=== PATIENT | male | born 1950 | race Caucasian/White ===

== ENCOUNTER 2019-02-02 09:07 | Day surgery (SDC) | payer OTHER ==
[~2019-02-02] VITALS: Ht 175.3 cm; Wt 62.4 kg
[~2019-02-02 09:07] MED LIST: OMEPRAZOLE
[2019-02-02 10:11] VITALS: Ht 175.3 cm; Wt 62.4 kg
[2019-02-02] MEDS ORDERED: LIDOCAINE 4% SOLUTION 50 ML BTL ONE (10:33)
[2019-02-02 10:34] VITALS: BP 116/58; PULSE 45; RESP 18
[2019-02-02] MEDS ORDERED: MIDAZOLAM 1 MG/ML 2 ML INJ ONE ×2 (11:13)
[2019-02-02] MEDS ORDERED: FENTAnyl 50 MCG/ML VIAL ONE (11:13)
[2019-02-02 11:27] VITALS: BP 107/63; PULSE 48; RESP 15
== END 2019-02-02 17:50 | disposition home or self-care (01) ==
LOC: GIL 09:07
PROVIDERS: ATTEND Internal Medicine Gastroenterology
DX: K20.8 Other esophagitis (principal)
CPT/HCPCS: 43239; 88305; 88312; 88313; J2250; J3010